=== PATIENT | male | born 1990 | race Caucasian/White ===

== ENCOUNTER 2017-02-18 12:23 | Emergency (ER) | payer OTHER ==
[2017-02-18 12:37] VITALS: BP 118/68; PULSE 60; TEMP 98.7; BMI 22.7
--- NOTE | 2017-02-18 13:25 | PDOC ---
History of Present Illness - General Chief Complaint: Pain Stated Complaint: TESTICULAR PAIN Time Seen by Provider: 02/18/17 13:13 History Source: Patient Exam Limitations: No Limitations - History of Present Illness Travel History: No Initial Comments: 02/18/17 13:48 Patient admittedly reports his paranoia about potential STDs even after treatment at [facility] 3 weeks ago with doxycycline and Rocephin. Patient denies drainage or discharge from penis, denies any lesions or tenderness. However continues to report testicular pain without swelling or fevers. Timing/Duration: reports: constant, intermittent Quality: reports: mild, cramping, sharpness Pain Radiation: reports: no radiation Aggravating Factors: improves with: None Past History - Past Medical History Allergies/Adverse Reactions: Allergies Allergy/AdvReac Type Severity Reaction Status Date / Time No Known Allergies Allergy Verified 02/18/17 12:34 Home Medications: Ambulatory Orders Doxycycline Hyclate [Vibratab -] 100 mg PO BID #14 tablet 02/18/17 Other medical history: Denies - Immunization History Immunization Up to Date: Yes - Suicide/Smoking/Psychosocial Hx Smoking History: Never smoked Have you smoked in the past 12 months: No Information on smoking cessation initiated: No Hx Alcohol Use: No Drug/Substance Use Hx: No Substance Use Type: None Review of Systems - Review of Systems Able to Perform ROS?: Yes Is the patient limited Kazakh proficient: Yes Constitutional: Yes: See HPI. No: Symptoms Reported, Chills, Fever, Malaise HEENTM: Yes: See HPI. No: Symptoms Reported Respiratory: Yes: See HPI. No: Symptoms reported : Yes: Symptoms Reported, Testicular Pain (scrotum pain, but denies swelling, discoloration or lesions to penis or testicle) Musculoskeletal: Yes: See HPI. No: Symptoms Reported All Other Systems: Reviewed and Negative *Physical Exam - Vital Signs Last Vital Signs Temp Pulse Resp BP Pulse Ox 98.7 F 60 12 118/68 99 02/18/17 12:35 02/18/17 12:35 02/18/17 12:35 02/18/17 12:35 02/18/17 12:35 - Physical Exam General Appearance: Yes: Nourished, Appropriately Dressed. No: Apparent Distress HEENT: positive: FRIDA, Normal ENT Inspection, Normal Voice, TMs Normal, Pharynx Normal Neck: positive: Supple. negative: Tender Respiratory/Chest: positive: Lungs Clear Gastrointestinal/Abdominal: positive: Normal Bowel Sounds, Soft. negative: Tender Male Genitalia: positive: normal genitalia. negative: discharge, testicular tenderness, testicular mass, epididymus tender, inguinal hernia (patient with no appreciable mass or protrusion to either inguinal area however with exam patient has tenderness at inguinal site bilaterally. 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 We will send additional 1 week of doxycycline if patient in fact does not have one weeks supply left and have patient follow up with urology. Urinalysis is pending GC and chlamydia repeat testing. We will continue the doxycycline for treatment of epididymitis and possible residual STD prophylaxis. May have early indications of inguinal hernia problems but no appreciable protrusions therefore will hold for any further testing/ultrasound. *DC/Admit/Observation/Transfer Diagnosis at time of Disposition: Testicular pain, unspecified - Discharge Dispostion Disposition: HOME Condition at time of disposition: Stable Admit: No - Referrals Referrals: Frances Sullivan [Primary Care Provider] - Valentin Ward MD [Staff Physician] - - Patient Instructions Printed Discharge Instructions: DI for Testicular Pain, DI for Groin Hernia Additional Instructions: Rest, ice to area on and off for 15 minutes 4-6 times a day Avoid heavy lifting or exercise until pain and swelling is resolved or until further directed Avoid any sexual activity until cleared by physician Up with urologist in one to 2 days if not improving, if significantly improved may wait one week for followup with urologist May use ibuprofen 2-200 mg tablets every 6 hours as needed for pain - Post Discharge Activity Forms/Work/School Notes: Back to School
[2017-02-18 13:51] LABS: URINE APPEARANCE CLEAR; URINE BILIRUBIN NEGATIVE (NEGATIVE); URINE BLOOD NEGATIVE (NEGATIVE); URINE COLOR YELLOW; URINE GLUCOSE (UA) NEGATIVE (NEGATIVE); URINE KETONE NEGATIVE (NEGATIVE); URINE LEUK ESTERASE NEGATIVE (NEGATIVE); URINE NITRITE NEGATIVE (NEGATIVE); URINE PROTEIN NEGATIVE (NEGATIVE); URINE UROBILINOGEN NEGATIVE mg/dL (0.2-1.0)
== END 2017-02-18 14:13 | disposition home or self-care (01) ==
LOC: JERFT 12:23
DX: N50.819 Testicular pain, unspecified (principal)
CPT/HCPCS: 36415; 81003; 87491; 87591; 99281-25

== ENCOUNTER 2018-06-10 14:10 | Emergency (ER) | payer OTHER ==
[2018-06-10 14:16] VITALS: BP 108/68; PULSE 69; TEMP 98; BMI 23.6
--- NOTE | 2018-06-10 14:16 | PDOC ---
Rapid Medical Evaluation Chief Complaint: Headache Time Seen by Provider: 06/10/18 14:13 Medical Evaluation: Allergies Allergy/AdvReac Type Severity Reaction Status Date / Time No Known Allergies Allergy Verified 06/10/18 14:12 06/10/18 14:13 I have performed a brief in person evaluation of this patient. The patient's CC: Head and neck pain HPI: Pt has had a CRUZ in the occipital region and neck x 1 week. Denies fever or hx of migraines. Pt denies a thunderclap sensation prior to the CRUZ initiation or this being the worst CRUZ of his life. PE: Skin: Clear Heart: RRR Lungs: Clear MS. pain upon palpation to the lumbar spine Neuro: Alert and oriented Psch: appropriate affect The patient will proceed to [facility] for further evaluation. Discharge Disposition - Diagnosis Headache Qualifiers: Headache type: unspecified Headache chronicity pattern: acute headache Intractability: not intractable Qualified Code(s): R51 - Headache - Referrals - Patient Instructions - Post Discharge Activity
[2018-06-10] MEDS ORDERED: ACETAMINOPHEN 500 MG TABLET (FP) PO ONE (15:34)
[2018-06-10] MEDS ORDERED: ACETAMINOPHEN 500 MG TABLET (FP) ONE (15:37)
[2018-06-10] MEDS ORDERED: KETOROLAC TROMETHAMINE 60 MG/2 ML VIAL IM ONE (15:52)
--- NOTE | 2018-06-10 15:55 | PDOC ---
History of Present Illness - General Chief Complaint: Headache Stated Complaint: PAIN Time Seen by Provider: 06/10/18 14:13 - History of Present Illness Initial Comments: 06/10/18 15:49 27-year-old male without comorbidities presents for evaluation of 4 days of headache. He describes it as a bandlike headache starting at the back of his head in the area of his occipital scalp wrapping around to the front. He was recently treated for food borne illness with Cipro that infection is cleared but has since developed a headache over the last 4 days. He has taking nothing for the headache. He has no systemic symptoms. Past History - Past Medical History Allergies/Adverse Reactions: Allergies Allergy/AdvReac Type Severity Reaction Status Date / Time No Known Allergies Allergy Verified 06/10/18 14:12 Home Medications: Ambulatory Orders NK [No Known Home Medication] 06/10/18 COPD: No - Immunization History Immunization Up to Date: Yes - Suicide/Smoking/Psychosocial Hx Smoking History: Never smoked Have you smoked in the past 12 months: No Hx Alcohol Use: No Drug/Substance Use Hx: No Substance Use Type: None Review of Systems - Review of Systems Neurological: Yes: Headache *Physical Exam - Vital Signs Last Vital Signs Temp Pulse Resp BP Pulse Ox 98 F 69 18 108/68 99 06/10/18 14:12 06/10/18 14:12 06/10/18 14:12 06/10/18 14:12 06/10/18 14:12 - Physical Exam Comments: 06/10/18 15:51 HEAD: NC/AT EYES: Conjuntiva clear Ears: Canals and TM's normal NOSE: No d/c THROAT: Moist mucous membrances, oral pharanx clear, uvula midline NECK: Supple without adenopathy CARDIAC: S1 S2 LUNGS: CTA Full and Equal breath sounds ABDOMEN: Soft NT ND MS: Full ROM in all joints without edema NEUROLOGIC: No gross sensory or motor deficits, NVID SKIN: Normal color and temperature no lesions or rashes Moderate Sedation - Procedure Monitoring Vital Signs: Procedure Monitoring Vital Signs Temperature 98 F 06/10/18 14:12 Pulse Rate 69 06/10/18 14:12 Respiratory Rate 18 06/10/18 14:12 Blood Pressure 108/68 06/10/18 14:12 O2 Sat by Pulse Oximetry (%) 99 06/10/18 14:12 ED Treatment Course - Medications Given in the ED: ED Medications Discontinued Medications Generic Name Dose Route Start Last Admin Trade Name Shruthi PRN Reason Stop Dose Admin Acetaminophen 1,000 mg 06/10/18 15:34 06/10/18 15:47 Tylenol - PO 06/10/18 15:35 1,000 mg ONCE ONE Administration *DC/Admit/Observation/Transfer Diagnosis at time of Disposition: Headache Qualifiers: Headache type: unspecified Headache chronicity pattern: acute headache Intractability: not intractable Qualified Code(s): R51 - Headache - Discharge Dispostion Disposition: HOME Condition at time of disposition: Improved Decision to Admit order: No - Referrals Referrals: See Hernandez MD [Primary Care Provider] - - Patient Instructions Printed Discharge Instructions: DI for Headache Additional Instructions: Follow-up with your primary care physician for further evaluation and treatment options. Please take Tylenol and Motrin as directed should her headache return. Return to the emergency room should her symptoms come back. - Post Discharge Activity
[2018-06-10] MEDS ORDERED: KETOROLAC TROMETHAMINE 60 MG/2 ML VIAL ONE (16:07)
== END 2018-06-10 15:39 | disposition home or self-care (01) ==
LOC: JERFT 14:10
PROC: 3E0233Z Introduction of Anti-inflammatory into Muscle, Percutaneous Approach (ICD-10-PCS; principal; 2018-06-10)
DX: R51 Headache (principal)
CPT/HCPCS: 96372; 99281-25

== ENCOUNTER 2021-11-14 15:16 | Observation (INO) | payer OTHER ==
[2021-11-14] MEDS ORDERED: PANTOPRAZOLE SODIUM 40 MG VIAL IVPB ONE (18:35)
[2021-11-14] MEDS ORDERED: SODIUM CHLORIDE 1,000 ML IV STA (18:35)
[2021-11-14] MEDS ORDERED: KETOROLAC TROMETHAMINE 30 MG/1 ML VIAL IVPUSH ONE (18:35)
[2021-11-14] MEDS ORDERED: PANTOPRAZOLE SODIUM 40 MG/100 ML BAG IVPB ONE (18:55)
[2021-11-14] MEDS ORDERED: KETOROLAC TROMETHAMINE 30 MG/1 ML VIAL ONE (18:55)
[2021-11-14 19:38] LABS: BASO % 0.2 % (0-2.0); EOS % 0.4 % (0-4.5); HEMATOCRIT 45.2 % (35.4-49); HEMOGLOBIN 15.3 GM/dL (11.7-16.9); LYMPH % 23.5 % (8-40); MCH 30.6 pg (25.7-33.7); MCHC 33.9 g/dl (32.0-35.9); MEAN CELL VOLUME 90.1 fl (80-96); MEAN PLT VOLUME 9.9 fl (7.5-11.1); MONO % 5.3 % (3.8-10.2); NEUT % 70.6 % (42.8-82.8); PLATELET COUNT 221 10^3/uL (134-434); RBC 5.01 M/mm3 (4.00-5.60); RDW 13.1 % (11.9-15.9); WHITE BLOOD COUNT 7.7 K/mm3 (4.0-10.0)
[2021-11-14 19:50] LABS: CHLORIDE 107 mmol/L (98-107); SODIUM 140 mmol/L (136-145)
[2021-11-14 19:52] LABS: MAGNESIUM 2.5 mg/dL (1.8-2.4)
[2021-11-14 19:53] LABS: ALBUMIN 4.5 g/dl (3.4-5.0); ANION GAP 5 MMOL/L (8-16); BLOOD UREA NITROGEN 17.9 mg/dL (7-18); CALCIUM 9.3 mg/dL (8.5-10.1); CO2 28 mmol/L (21-32); GLUCOSE,RANDOM 71 mg/dL (74-106); LIPASE 114 U/L (73-393)
[2021-11-14 19:55] LABS: SGPT/ALT 22 U/L (13-61)
[2021-11-14 19:56] LABS: CREATININE 0.9 mg/dL (0.55-1.3); PHOSPHOROUS 3.5 mg/dL (2.5-4.9); SGOT/AST 62 U/L (15-37)
[2021-11-14 19:57] LABS: TOT PROT 7.9 g/dl (6.4-8.2)
[2021-11-14 19:58] LABS: BILIRUBIN,TOTAL 1.5 mg/dL (0.2-1)
[2021-11-14 19:59] LABS: ALK PHOS 145 U/L (45-117)
[2021-11-14 20:21] LABS: ERYTHROCYTE SEDIMENTATION RATE 8 mm/hr (0-10)
[2021-11-14 21:12] LABS: URINE APPEARANCE CLEAR; URINE BILIRUBIN NEGATIVE (NEGATIVE); URINE COLOR YELLOW; URINE GLUCOSE (UA) NEGATIVE (NEGATIVE); URINE KETONE 2+ (NEGATIVE); URINE LEUK ESTERASE NEGATIVE (NEGATIVE); URINE NITRITE NEGATIVE (NEGATIVE); URINE PROTEIN NEGATIVE (NEGATIVE); URINE UROBILINOGEN 0.2 mg/dL (0.2-1.0)
[2021-11-14] MEDS ORDERED: CEFTRIAXONE 1 GM in DEXTROSE 5%-WATER - 100 ML IVPB ONE (21:52)
[2021-11-14] MEDS ORDERED: CEFTRIAXONE 1 GM/50 ML BAG ONE (23:45)
[2021-11-14] MEDS ORDERED: POLYETHYLENE GLYCOL (HEALTHYLAX) 3350 17 GM PACKET PO PRN (23:50)
[2021-11-14] MEDS ORDERED: ACETAMINOPHEN INJECTION 100 ML IVPB ONE (23:55)
[2021-11-15] MEDS ORDERED: ACETAMINOPHEN 1000 MG/100 ML BAG IVPB PRN (00:25)
[2021-11-15 08:21] LABS: BASO % 0.3 % (0-2.0); EOS % 0.9 % (0-4.5); HEMATOCRIT 41.6 % (35.4-49); HEMOGLOBIN 14.4 GM/dL (11.7-16.9); LYMPH % 22.9 % (8-40); MCHC 34.6 g/dl (32.0-35.9); MEAN CELL VOLUME 89.7 fl (80-96); MEAN PLT VOLUME 10.5 fl (7.5-11.1); MONO % 6.3 % (3.8-10.2); NEUT % 69.6 % (42.8-82.8); PLATELET COUNT 202 10^3/uL (134-434); RBC 4.64 M/mm3 (4.00-5.60); WHITE BLOOD COUNT 6.4 K/mm3 (4.0-10.0)
[2021-11-15 08:40] LABS: ALBUMIN 3.8 g/dl (3.4-5.0); CALCIUM 8.6 mg/dL (8.5-10.1)
[2021-11-15 08:41] LABS: BLOOD UREA NITROGEN 12.8 mg/dL (7-18)
[2021-11-15 08:42] LABS: BILIRUBIN,DIRECT 0.3 mg/dL (0.0-0.2)
[2021-11-15 08:43] LABS: CREATININE 0.7 mg/dL (0.55-1.3)
[2021-11-15 08:44] LABS: BILIRUBIN,TOTAL 1.4 mg/dL (0.2-1); TOT PROT 6.6 g/dl (6.4-8.2)
[2021-11-15 11:46] VITALS: BMI 25.2
[2021-11-15] MEDS ORDERED: D5-1/2NS+20 MEQ KCL - 20 MEQ/1,000 ML INFUS.BAG IV SCH (17:00)
[2021-11-15] MEDS ORDERED: CEFTRIAXONE 1 GM in DEXTROSE 5%-WATER - 50 ML IVPB SCH (22:00)
[2021-11-15] MEDS ORDERED: DEXTROSE 5%-WATER - 50 ML IVPB ONE (23:39)
[2021-11-15] MEDS ORDERED: cefTRIAXone SODIUM 1 GM VIAL ONE (23:39)
[2021-11-16 06:32] VITALS: TEMP 97.8
[2021-11-16 14:00] VITALS: BP 100/58; PULSE 60
== END 2021-11-16 17:42 | disposition left against medical advice (07) ==
LOC: JER 15:16 → JERBED 21:41 → J5S 11-15 09:46
PROVIDERS: ADMIT Hospitalist; ATTEND Family Medicine
PROC: 3E03329 Introduction of Other Anti-infective into Peripheral Vein, Percutaneous Approach (ICD-10-PCS; principal; 2021-11-14)
PROC: 3E033NZ Introduction of Analgesics, Hypnotics, Sedatives into Peripheral Vein, Percutaneous Approach (ICD-10-PCS; 2021-11-14)
PROC: 3E0337Z Introduction of Electrolytic and Water Balance Substance into Peripheral Vein, Percutaneous Approach (ICD-10-PCS; 2021-11-14)
PROC: 3E0333Z Introduction of Anti-inflammatory into Peripheral Vein, Percutaneous Approach (ICD-10-PCS; 2021-11-14)
DX: R10.31 Right lower quadrant pain (principal); R10.11 Right upper quadrant pain; K37 Unspecified appendicitis; R00.0 Tachycardia, unspecified; R00.1 Bradycardia, unspecified; R94.5 Abnormal results of liver function studies
CPT/HCPCS: 36415; 74176-TC; 74177-TC; 76705-TC; 80048; 80053; 80076; 81003; 82962; 83690; 83735; 84100; 85025; 85651; 86140; 87040; 93005; 93010; 99285-25; C9803-CS; G0378; Q9967; U0003; U0005